=== PATIENT | female | born 1940 | race American Indian/Alaskan Native ===

== ENCOUNTER 2019-08-26 17:50 | Emergency (ER) | payer MEDICARE ==
[2019-08-26] MEDS ORDERED: levETIRAcetam 1000 MG/NS 0.75% 1,000 MG/100 ML BAG IV ONE (21:00)
[2019-08-26 21:53] LABS: Basophils # (Auto) 0.1 K/mm3 (0.0-0.1); Basophils % (Auto) 1.8 % (0.0-1.8); Hematocrit 26.6 % (30.3-42.9); Hemoglobin 8.1 gm/dl (10.1-14.3); Lymphocytes # (Auto) 0.9 K/mm3 (1.2-5.4); Lymphocytes % (Auto) 19.3 % (13.4-35.0); Mean Corpuscular HGB Conc 31 % (30-34); Mean Corpuscular Volume 90 fl (79-97); Monocytes # (Auto) 0.4 K/mm3 (0.0-0.8); Monocytes % (Auto) 9.7 % (0.0-7.3); Platelet Count 249 K/mm3 (140-440); Red Blood Count 2.96 M/mm3 (3.65-5.03)
[2019-08-26 22:20] LABS: Albumin 1.6 g/dL (3.9-5); BUN/Creatinine Ratio 25; Blood Urea Nitrogen 33 mg/dL (7-17); Calcium 7.7 mg/dL (8.4-10.2); Hemolysis Index 16
[2019-08-26 22:28] LABS: Amorphous Crystals,Urine Few; Bacteria,Urine 1+ /HPF (Negative); Bilirubin,Urine NEG (Negative); Blood,Urine LG (Negative); Color,Urine Amber (Yellow); Mucus,Urine FEW /HPF; Urobilinogen,Urine < 2.0 mg/dL (<2.0)
[2019-08-26 22:29] LABS: RBC,Urine > 182.0 /HPF (0.0-6.0)
[2019-08-26 22:38] LABS: Alanine Aminotransferase < 5 units/L (7-56)
[2019-08-26 23:09] VITALS: BP 130/72
--- NOTE | 2019-08-26 23:16 | Cat Scan Report ---
CLINICAL DATA: seizure TECHNICAL DATA: CT images were performed in the axial, coronal, and sagittal imaging planes using soft tissue algorit hm. Bone algorithm axial imaging plane were also performed. All CT scans at this location are performed using CT dose reduction for ALARA by means of automated e xposure control. 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 Cerebral and Cerebellar Hemispheres: No evidence of mass or mass effect. No midline shift. No acute hemorrhage. No acute cortical infarction. No extra-axial fluid collection. Ventricles: Normal in size and configuration for age. Osseous Structures: No significant abnormality. Visualized Paranasal Sinuses: No significant abnormality. Mucosal thickening right mastoid air cells. IMPRESSION: Moderate intracranial atrophy and moderate supratentorial small vessel white matter disease without e vidence of acute cortical infarct, intracranial hemorrhage, or mass lesion. No acute intracranial abnormality, acute infarct may not be visible by noncontrast CT Signer Name: Robinson Gonzales MD Signed: 08/26/2019 11:11 PM Workstation Name: [id number]
--- NOTE | 2019-08-26 23:44 | Emergency Department Report ---
ED General Adult HPI - General Chief complaint: Seizure Stated complaint: SEIZURE Time Seen by Provider: 08/26/19 20:58 Source: EMS Mode of arrival: Stretcher Limitations: Altered Mental Status - History of Present Illness Initial comments: Patient presents to the emergency department with a chief complaint of a seizure. Patient was at home when she has seizure activity. Patient has a history of seizures and per her daughter she has not had a seizure in quite some time thus her reasoning of have her transported to the ED. Patient is somnolent but easily arousable and has no complaints. Patient does present to the emergency department with a Main in place. -: Sudden Severity scale (0 -10): 0 Consistency: now resolved Treatments Prior to Arrival: none - Related Data Previous Rx's Medication Instructions Recorded Last Taken Type Sulfamethoxazole/Trimethoprim 1 each PO BID #14 tablet 08/27/19 Unknown Rx [Bactrim DS TAB] Allergies Allergy/AdvReac Type Severity Reaction Status Date / Time Penicillins Allergy Unknown Verified 08/26/19 19:44 ED Review of Systems ROS: Stated complaint: SEIZURE Other details as noted in HPI Comment: Unobtainable due to pts medical conditions ED Past Medical Hx - Past Medical History Hx Hypertension: Yes Hx Seizures: Yes - Surgical History Past Surgical History?: Yes - Social History Smoking Status: Never Smoker Substance Use Type: None - Medications Home Medications: Home Medications Medication Instructions Recorded Confirmed Last Taken Type Sulfamethoxazole/Trimethoprim 1 each PO BID #14 tablet 08/27/19 Unknown Rx [Bactrim DS TAB] ED Physical Exam - General Limitations: Altered Mental Status General appearance: obtunded (But arousable) - Head Head exam: Present: atraumatic, normocephalic - Eye Eye exam: Present: normal appearance - ENT ENT exam: Present: mucous membranes moist - Neck Neck exam: Present: normal inspection - Respiratory Respiratory exam: Present: normal lung sounds bilaterally. Absent: respiratory distress - Cardiovascular Cardiovascular Exam: Present: regular rate, normal rhythm - GI/Abdominal GI/Abdominal exam: Present: soft, normal bowel sounds. Absent: distended, tenderness - Extremities Exam Extremities exam: Present: normal inspection - Neurological Exam Neurological exam: Present: other (Not able to completely assess due to the patient's age) - Psychiatric Psychiatric exam: Present: other (Not able to assess due to the patient's condition) - Skin Skin exam: Present: warm, dry, intact, normal color. Absent: rash ED Course Vital Signs 08/26/19 08/26/19 08/26/19 18:21 19:06 19:15 Temperature 97.3 F L Pulse Rate 82 Respiratory 16 Rate Blood Pressure 128/78 121/66 110/61 O2 Sat by Pulse 100 100 100 Oximetry 08/26/19 08/26/19 08/26/19 19:30 19:43 19:45 Temperature 97.9 F Pulse Rate 73 Respiratory Rate Blood Pressure 120/67 122/64 O2 Sat by Pulse 100 100 Oximetry 08/26/19 08/26/19 08/26/19 20:00 20:15 20:30 Temperature Pulse Rate Respiratory Rate Blood Pressure 117/63 124/66 127/65 O2 Sat by Pulse 100 100 100 Oximetry 08/26/19 08/26/19 08/26/19 20:45 21:00 21:15 Temperature Pulse Rate Respiratory Rate Blood Pressure 124/63 118/66 133/74 O2 Sat by Pulse 100 100 99 Oximetry 08/26/19 08/26/19 08/26/19 21:30 21:45 22:00 Temperature Pulse Rate Respiratory Rate Blood Pressure 128/64 122/61 126/67 O2 Sat by Pulse 100 100 100 Oximetry 08/26/19 08/26/19 08/26/19 22:17 22:30 22:57 Temperature Pulse Rate Respiratory Rate Blood Pressure 122/65 124/64 124/64 O2 Sat by Pulse 100 100 Oximetry 08/26/19 23:00 Temperature Pulse Rate Respiratory Rate Blood Pressure 130/72 O2 Sat by Pulse 100 Oximetry ED Medical Decision Making - Lab Data Result diagrams: 08/26/19 21:12 08/26/19 21:12 Lab Results 08/26/19 08/26/19 08/26/19 Range/Units 21:12 21:12 Unknown WBC 4.5 (4.5-11.0) K/mm3 RBC 2.96 L (3.65-5.03) M/mm3 Hgb 8.1 L (10.1-14.3) gm/dl Hct 26.6 L (30.3-42.9) % MCV 90 (79-97) fl MCH 28 (28-32) pg MCHC 31 (30-34) % RDW 19.0 H (13.2-15.2) % Plt Count 249 (140-440) K/mm3 Lymph % (Auto) 19.3 (13.4-35.0) % [place] % (Auto) 9.7 H (0.0-7.3) % Eos % (Auto) 0.0 (0.0-4.3) % Baso % (Auto) 1.8 (0.0-1.8) % Lymph # 0.9 L (1.2-5.4) K/mm3 [place] # 0.4 (0.0-0.8) K/mm3 Eos # 0.0 (0.0-0.4) K/mm3 Baso # 0.1 (0.0-0.1) K/mm3 Seg Neutrophils % 69.2 (40.0-70.0) % Seg Neutrophils # 3.1 (1.8-7.7) K/mm3 Sodium 144 (137-145) mmol/L Potassium 4.7 (3.6-5.0) mmol/L Chloride 120.9 H (98-107) mmol/L Carbon Dioxide 12 L (22-30) mmol/L Anion Gap 16 mmol/L BUN 33 H (7-17) mg/dL Creatinine 1.3 H (0.7-1.2) mg/dL Estimated GFR 39 ml/min BUN/Creatinine Ratio 25 % Glucose 88 (65-100) mg/dL Calcium 7.7 L (8.4-10.2) mg/dL Total Bilirubin 0.20 (0.1-1.2) mg/dL AST 13 (5-40) units/L ALT < 5 L (7-56) units/L Alkaline Phosphatase 106 (35-129) units/L Total Protein 5.6 L (6.3-8.2) g/dL Albumin 1.6 L (3.9-5) g/dL Albumin/Globulin Ratio 0.4 % Urine Color Francine (Yellow) Urine Turbidity Slightly-cloudy (Clear) Urine pH 6.0 (5.0-7.0) Ur Specific [place] 1.013 (1.003-1.030) Urine Protein 100 mg/dl (Negative) mg/dL Urine Glucose (UA) Neg (Negative) mg/dL Urine Ketones Neg (Negative) mg/dL Urine Blood Lg (Negative) Urine Nitrite Neg (Negative) Urine Bilirubin Neg (Negative) Urine Urobilinogen < 2.0 (<2.0) mg/dL Ur Leukocyte Esterase Sm (Negative) Urine WBC (Auto) 45.0 H (0.0-6.0) /HPF Urine RBC (Auto) > 182.0 (0.0-6.0) /HPF U Epithel Cells (Auto) < 1.0 (0-13.0) /HPF Urine Bacteria (Auto) 1+ (Negative) /HPF Amorphous Crystals Few Urine Mucus Few /HPF Urine Yeast (Budding) 3+ /HPF - Radiology Data Radiology results: report reviewed Critical care attestation.: If time is entered above; I have spent that time in minutes in the direct care of this critically ill patient, excluding procedure time. ED Disposition Clinical Impression: UTI (urinary tract infection) Disposition: TO HOME OR SELFCARE Is pt being admited?: No Does the pt Need Aspirin: No Condition: Stable Instructions: Urinary Tract Infection in Women (ED) Additional Instructions: return if worse Referrals: PRIMARY CARE, [Primary Care Provider] - 3-5 Days [facility] [Provider Group] - 3-5 Days [facility] [Provider Group] - 3-5 Days Time of Disposition: 01:34
[2019-08-27] MEDS ORDERED: SULFAMETHOXAZOLE/TRIMETHOPRIM 800/160MG DS TAB PO ONE (01:29)
== END 2019-08-27 02:29 | disposition home or self-care (01) ==
LOC: ED 17:50
DX: N39.0 Urinary tract infection, site not specified (principal); R56.9 Unspecified convulsions; I10 Essential (primary) hypertension; Z79.899 Other long term (current) drug therapy; Z88.0 Allergy status to penicillin
CPT/HCPCS: 36415; 70450; 80053; 81001; 85025; 87086; 96374; 99284; J1953

== ENCOUNTER 2019-09-21 08:51 | Emergency (ER) | payer MEDICARE ==
--- NOTE | 2019-09-21 09:17 | Emergency Department Report ---
ED CPR HPI - General Stated Complaint: CARDIAC ARREST Time Seen by Provider: 09/21/19 09:12 Source: EMS - History of Present Illness Initial Comments: Patient is 79 years old female with history of hypertension and seizure. Waldo whiting brought to the emergency room via EMS from home in a full cardiac arrest CPR in progress. EMS stated that patient found unresponsive. Initial rhythm was PEA. ACLS protocol immediately initiated by EMS and patient had a Yair airway with good breath sounds on both sides. Patient found to be hypoglycemic and given a D 25. Patient had a return of circulation one time but lost it immediately. Upon arrival to the ER, ACLS protocol continued. Good breath sounds on both sides. CPR continued. Patient given a dextrose 50. Patient had a return of circulation for approximately 2 to 3 minutes and lost it again. Patient was in and out of PEA and then her rhythm became asystole. Unfortunately patient remained in asystole. Patient pronounced at 9 AM. For further information please refer to code sheet. Total resuscitation time is 40 minutes. Family informed. MD Complaint: collapsed during rest Place: home Bystander CPR Performed: No Shock Advised: No Initial Findings in the Field: unresponsive, no pulse, PEA ROSC in the Field: Yes (One time and lost.) Associated Injuries: No Treatments Prior to Arrival: other airway device (Yair airway.), chest compressions, epinephrine mgs #, glucose - Related Data Home Medications Medication Instructions Recorded Confirmed Last Taken Amlodipine Besylate [Norvasc] 2.5 mg PO QDAY 09/07/19 09/07/19 09/05/19 Lacosamide [Vimpat] 50 mg PO Q12HR 09/07/19 09/07/19 09/05/19 Previous Rx's Medication Instructions Recorded Last Taken Type cefUROXime [Ceftin] 500 mg PO Q12H #10 tablet 09/12/19 Unknown Rx Allergies Allergy/AdvReac Type Severity Reaction Status Date / Time Sulfa (Sulfonamide Allergy Intermediate Swelling Verified 09/06/19 20:36 Antibiotics) Penicillins Allergy Unknown Verified 09/05/19 10:00 phenytoin [From Dilantin] Allergy Hives Verified 09/06/19 20:35 prednisone Allergy Dizziness Verified 09/06/19 20:35 ED Review of Systems ROS: Stated complaint: CARDIAC ARREST Other details as noted in HPI Comment: Unobtainable due to pts medical conditions ED Past Medical Hx - Past Medical History Hx Hypertension: Yes Hx Seizures: Yes Additional medical history: lupus, decubitus ulcers. Recent hospitalization. - Social History Smoking Status: Never Smoker Substance Use Type: None - Medications Home Medications: Home Medications Medication Instructions Recorded Confirmed Last Taken Type Amlodipine Besylate [Norvasc] 2.5 mg PO QDAY 09/07/19 09/07/19 09/05/19 History Lacosamide [Vimpat] 50 mg PO Q12HR 09/07/19 09/07/19 09/05/19 History cefUROXime [Ceftin] 500 mg PO Q12H #10 tablet 09/12/19 Unknown Rx ED Physical Exam - General General appearance: other (CPR in progress.) - Head Head exam: Present: atraumatic - Eye Eye exam: Present: other (4 mm, fixed and dilated) - Respiratory Respiratory exam: Present: other (No spontaneous breath sounds) - Cardiovascular Cardiovascular Exam: Present: other (No spontaneous heart tones. Chest compression in progress.) - GI/Abdominal GI/Abdominal exam: Present: soft. Absent: distended - Neurological Exam Neurological exam: Present: other (CPR in progress.) Critical Care Time: Yes Critical care time in (mins) excluding proc time.: 30 Critical care attestation.: If time is entered above; I have spent that time in minutes in the direct care of this critically ill patient, excluding procedure time. ED Disposition Clinical Impression: Cardiopulmonary arrest Disposition: DC-20 Is pt being admited?: No Condition: Stable Referrals: PRIMARY CARE, [Primary Care Provider] - 3-5 Days
[2019-09-21] MEDS ORDERED: ETOMIDATE 20 MG/10 ML INJ IV ONE (21:40)
[2019-09-21] MEDS ORDERED: EPINEPHrine 1:10,000 1 MG/10 ML SYRINGE ONE (21:40)
[2019-09-21] MEDS ORDERED: SODIUM BICARB 8.4% 50 MEQ/50 ML SYRINGE IV ONE (21:40)
[2019-09-21] MEDS ORDERED: SUCCINYLCHOLINE CHLORIDE 200 MG/10 ML INJ MDV ONE (21:40)
== END 2019-09-21 12:47 ==
LOC: ED 08:51
DX: I46.9 Cardiac arrest, cause unspecified (principal); I10 Essential (primary) hypertension; Z86.69 Personal history of other diseases of the nervous system and sense organs; Z79.899 Other long term (current) drug therapy; Z88.8 Allergy status to other drugs, medicaments and biological substances; Z88.2 Allergy status to sulfonamides; Z88.0 Allergy status to penicillin
CPT/HCPCS: 92950; 99285; J0171; J0330